=== PATIENT | female | born 1990 | race Two or more races ===

== ENCOUNTER 2017-06-15 09:35 | Emergency (ER) | payer BC, MEDICAID ==
[~2017-06-15] VITALS: Ht 167.6 cm; Wt 97.5 kg
[2017-06-15] MEDS ORDERED: KETOROLAC TROMETH 60MG/2ML VIAL IM ONE (11:45)
[2017-06-15 11:57] VITALS: BP 143/86
== END 2017-06-15 12:15 | disposition home or self-care (01) ==
LOC: ER 09:35
DX: R07.89 Other chest pain (principal); M79.602 Pain in left arm; M25.561 Pain in right knee; F17.210 Nicotine dependence, cigarettes, uncomplicated; V43.52XA Car driver injured in collision with other type car in traffic accident, initial encounter; Y93.89 Activity, other specified; Y99.8 Other external cause status; Y92.410 Unspecified street and highway as the place of occurrence of the external cause
CPT/HCPCS: 71046; 96372; 99284; J1885